=== PATIENT | female | born 1955 | race Caucasian/White ===

== ENCOUNTER 2016-04-06 08:09 | Day surgery (SDC) | payer OTHER ==
[~2016-04-06 08:09] MED LIST: LACTATED RINGERS 1,000 ML ONE
--- NOTE | 2016-04-06 09:23 | OP ---
DATE OF PROCEDURE: 04/06/16 PREOPERATIVE DIAGNOSIS: 1. Heartburn, refractory to medical therapy. 2. Chronic diarrhea. POSTOPERATIVE DIAGNOSIS: 1. Normal upper endoscopy. 2. Colonic polyp. 3. Internal hemorrhoids. PROCEDURE: 1. Upper endoscopy. 2. Colonoscopy with biopsy and polypectomy. SURGEON: Luca Mckeon MD SEDATION: Monitored anesthesia care. ESTIMATED BLOOD LOSS: Less than 5 mL. DESCRIPTION OF PROCEDURE: Informed consent was obtained prior to sedation. The preprocedure cardiopulmonary assessment was satisfactory. The patient was brought to the Endoscopy Suite and placed in the left lateral decubitus position. She was then sedated by the anesthesia team. The tip of the Olympus esophagogastroduodenoscope was inserted in the oropharynx and advanced under direct vision across the cricopharyngeus muscle into the esophageal lumen. The entire esophagus appeared normal. The endoscope was then advanced into the stomach where a thorough exam of the gastric mucosa revealed no abnormalities. The endoscope was advanced into the duodenum where examination of the first and second portions was normal as well. The endoscope was then withdrawn from the patient. The patient was re-positioned for colonoscopy. Digital rectal exam revealed no abnormalities. The tip of the Olympus colonoscope was inserted into the rectum and advanced under direct visualization to the terminal ileum. The cecum was identified by the appendiceal orifice and ileocecal valve. Examination of the terminal ileum revealed normal small bowel mucosa without evidence of Crohn's disease. Upon reaching the terminal ileum, the endoscope was slowly withdrawn from the patient with careful attention paid to the colonic mucosa for the identification of small flat lesions or small polyps. Preparation of the colon was excellent. In the proximal ascending colon, there was an 8 mm sessile polyp. This was resected and retrieved with a hot snare polypectomy. The mucosa of the entire colon appeared normal. Biopsies were taken of random locations from the right colon and left colon for examination of microscopic colitis. The endoscope was withdrawn slowly to the rectum where a retroflexed view of the rectum showed evidence of small, non-bleeding internal hemorrhoids. The endoscope was then withdrawn from the patient and the procedure terminated. RECOMMENDATION: 1. Discharge the patient home.ties. 2. Resume regular diet. 3. Followup pathology results. If polyp returns adenomatous, she will need a surveillance colonoscopy in five years' time. 4. The patient should telephone my office in two weeks for final recommendations and discussion of pathology results. 5. Continue taking Nexium at the current dose. #[id number] MTDD
[2016-04-06 09:33] VITALS: BP 136/81; TEMP 97.6; O2SAT 100
[2016-04-06] MEDS ORDERED: LIDOCAINE 1% 10 ML VIAL INJ ONE (12:00)
[2016-04-06] MEDS ORDERED: PROPOFOL 200 MG/20 ML VIAL IV ONE (12:00)
== END 2016-04-06 09:20 | disposition home or self-care (01) ==
LOC: AMB 08:09
PROVIDERS: ATTEND Internal Medicine Gastroenterology
DX: R19.7 Diarrhea, unspecified (principal); K21.9 Gastro-esophageal reflux disease without esophagitis; K64.8 Other hemorrhoids; D12.2 Benign neoplasm of ascending colon; Z79.899 Other long term (current) drug therapy
CPT/HCPCS: 00810; 43235; 45380; 45385; J3490; J7120

== ENCOUNTER → 2016-09-12 | Outpatient (CLI) | payer OTHER | END | disposition home or self-care (01) | LOC: LAB.O 15:14 | PROVIDERS: ATTEND Nurse Practitioner Family | DX: R10.13 Epigastric pain (principal) ==

== ENCOUNTER → 2017-02-20 | Outpatient (CLI) | payer BC | END | disposition home or self-care (01) | LOC: LAB.O 07:36 | PROVIDERS: ATTEND Family Medicine | DX: E55.9 Vitamin D deficiency, unspecified (principal); E28.39 Other primary ovarian failure; D80.3 Selective deficiency of immunoglobulin G [IgG] subclasses ==

== ENCOUNTER → 2017-04-10 | Outpatient (CLI) | payer BC | LOC: LAB.O 09:33 | PROVIDERS: ATTEND Family Medicine | DX: E28.39 Other primary ovarian failure (principal); D80.3 Selective deficiency of immunoglobulin G [IgG] subclasses; E03.9 Hypothyroidism, unspecified ==

== ENCOUNTER → 2017-10-11 | Outpatient (CLI) | payer BC | LOC: GMAL 11:31 | PROVIDERS: ATTEND Family Medicine | DX: E03.8 Other specified hypothyroidism (principal); E78.4 Other hyperlipidemia; I10 Essential (primary) hypertension ==

== ENCOUNTER → 2017-10-18 | Outpatient (CLI) | payer BC | LOC: LAB.O 09:20 | PROVIDERS: ATTEND Family Medicine | DX: E03.8 Other specified hypothyroidism (principal); D80.3 Selective deficiency of immunoglobulin G [IgG] subclasses; R87.1 Abnormal level of hormones in specimens from female genital organs; E78.2 Mixed hyperlipidemia; R53.82 Chronic fatigue, unspecified ==

== ENCOUNTER → 2018-01-02 | Outpatient (CLI) | payer BC | LOC: LAB.O 08:27 | PROVIDERS: ATTEND Family Medicine | DX: D84.9 Immunodeficiency, unspecified (principal); E34.9 Endocrine disorder, unspecified ==

== ENCOUNTER → 2018-04-25 | Outpatient (CLI) | payer BC | LOC: LAB.O 01-30 08:33 | PROVIDERS: ATTEND Surgery | DX: E03.9 Hypothyroidism, unspecified (principal) ==

== ENCOUNTER → 2019-05-02 | Outpatient (CLI) | payer BC | LOC: GMAL 10:48 | PROVIDERS: ATTEND Family Medicine | DX: E03.8 Other specified hypothyroidism (principal) ==